=== PATIENT | male | born 1975 | race Caucasian/White ===

== ENCOUNTER 2021-09-05 10:57 | Inpatient (IN) | payer OTHER, BC ==
[~2021-09-05 10:57] MED LIST: Iopamidol-370 76% 500 ML 1 ML ONE
[2021-09-05] MEDS ORDERED: Ondansetron PF 4 MG/2 ML Vial ONE (11:02)
[2021-09-05] MEDS ORDERED: Boostrix 0.5 ML (Tdap) VIAL ONE (11:03)
[2021-09-05] MEDS ORDERED: Fentanyl 100 MCG/2 ML VIAL ONE ×2 (11:03→23:28)
[2021-09-05] MEDS ORDERED: ceFAZolin (BATCH) 2 GM/100 ML BAG ONE (11:13)
[2021-09-05 11:20] LABS: #Basophils 0.1 thou/uL (0.0-0.2); #Lymphocytes 4.1 thou/uL (1.20-3.40); #Monocytes 0.5 thou/uL (0.11-0.59); #Neutrophils 3.8 thou/uL (1.40-6.50); %Basophils 1.1 % (0.0-1.0); %Eosinophils 0.6 % (0.0-10.0); %Lymphocytes 47.5 % (21.0-51.0); %Monocytes 5.8 % (0.0-10.0); Hemoglobin 14.6 g/dL (14.0-18.0); Mean Corpuscular HGB CONC 33.9 g/dL (32.0-36.0); Mean Corpuscular Hemoglobin 32.9 pg (27.0-31.0); Mean Corpuscular Volume 97.2 fL (78.0-98.0); Mean Platelet Volume 7.4 fL (7.4-10.4); Platelet Count 150 thou/uL (130-400); RBC Distribution Width 13.6 % (11.5-14.5); Red Blood Cell (RBC) Count 4.42 mill/uL (4.70-6.10); White Blood Cell (WBC) Count 8.6 thou/uL (4.8-10.8)
[2021-09-05 11:37] LABS: ALT (SGPT) 50 U/L (8-55); AST (SGOT) 95 U/L (5-34); Albumin 3.6 g/dL (3.5-5.0); Alcohol 355 mg/dL (Less than 10); Alkaline Phosphatase 156 U/L (40-110); Anion Gap 16 mmol/L (10-20); BUN (Urea Nitrogen) 10 mg/dL (8.9-20.6); Bilirubin, Total 1.6 mg/dL (0.2-1.2); Calc. Creatinine Clearance 0 mL/min (70-130); Calcium 8.3 mg/dL (7.8-10.44); Carbon Dioxide 20 mmol/L (22-29); Chloride 106 mmol/L (98-107); Globulin 3.7 g/dL (2.4-3.5); Glucose 179 mg/dL (70-105); INR-International Normal Ratio 1.1; Potassium 3.6 mmol/L (3.5-5.1); Protein, Total 7.3 g/dL (6.0-8.3); Prothrombin Time 14.5 sec (12.0-14.7); Sodium 138 mmol/L (136-145)
[2021-09-05 11:38] LABS: PTT 38.3 sec (22.9-36.1)
[2021-09-05 12:09] LABS: Acetaminophen Less than 6.0 mcg/mL (10.0-30.0); Alcohol 352 mg/dL (Less than 10); Salicylate Less than 8.0 mg/dL (15.0-30.0)
[2021-09-05] MEDS ORDERED: Morphine 4 MG/ML VIAL ONE (12:27)
[2021-09-05] MEDS ORDERED: ceFAZolin 2 GM/Dextrose 50 ML 2 GM in Premix Bag 1 BAG IVPB SCH (14:15)
[2021-09-05 14:40] LABS: SARS-CoV-2 NAA Rapid Test Not Detected (NotDetected)
[2021-09-05 14:42] LABS: Lactic Acid 2.1 mmol/L (0.5-2.2)
[2021-09-05] MEDS ORDERED: Dextrose 50% Abboject 50 ML SYRINGE SLOW IVP PRN (14:48)
[2021-09-05] MEDS ORDERED: Morphine 4 MG/ML VIAL SLOW IVP PRN ×2 (14:48→19:13)
[2021-09-05] MEDS ORDERED: Ondansetron PF 4 MG/2 ML Vial IVP PRN (14:48)
[2021-09-05] MEDS ORDERED: hydrALAZINE 20 MG/ML VIAL SLOW IVP PRN (14:48)
[2021-09-05] MEDS ORDERED: Dextrose 5% in Water 1,000 ML IV PRN (14:48)
[2021-09-05] MEDS ORDERED: Ondansetron ODT 4 MG TAB PO PRN (14:48)
[2021-09-05] MEDS ORDERED: traMADol HCl 50 MG TAB PO PRN ×2 (14:55→22:14)
[2021-09-05 16:13] LABS: Magnesium 1.6 mg/dL (1.6-2.6); Phosphorus 2.8 mg/dL (2.3-4.7)
[2021-09-05] MEDS: Sodium Chloride 0.9% 1,000 ML IV SCH (16:55)
[2021-09-05 18:18] VITALS: BMI 39.0
[2021-09-05] MEDS ORDERED: Ibuprofen 200 MG TAB PO PRN (19:09)
[2021-09-05] MEDS ORDERED: traMADol HCl 50 MG TAB PO SCH (19:15)
[2021-09-05] MEDS ORDERED: Famotidine/PF 20 mg/2ml Vial SLOW IVP SCH (21:00)
[2021-09-05] MEDS: Oxazepam 10 MG CAP PO SCH (21:05)
[2021-09-05] MEDS ORDERED: Dexmedetomidine 200 MCG/2 ML VIAL ONE (23:28)
[2021-09-05] MEDS ORDERED: Neomycin-Polymyxin 1 ML AMP ONE (23:32)
[2021-09-06] MEDS ORDERED: Ondansetron PF 4 MG/2 ML Vial ONE (00:02)
[2021-09-06] MEDS ORDERED: Glycopyrrolate 0.2 MG/ML 5 ML SYRINGE ONE (00:02)
[2021-09-06] MEDS ORDERED: Lidocaine 1% PF 5 ML VIAL ONE (00:02)
[2021-09-06] MEDS ORDERED: Rocuronium Bromide 10 MG/ML (10ML VIAL) ONE (00:02)
[2021-09-06] MEDS ORDERED: PROPOFOL 200 MG/20 ML VIAL ONE (00:02)
[2021-09-06] MEDS ORDERED: Dexamethasone 20 MG/5 ML VIAL ONE (00:02)
[2021-09-06] MEDS: Sodium Chloride 0.9% 1,000 ML IV SCH (00:13)
[2021-09-06] MEDS ORDERED: Midazolam HCl 2 mg/2 ml Vial ONE (00:25)
[2021-09-06] MEDS ORDERED: Fentanyl 100 MCG/2 ML VIAL ONE (00:54)
[2021-09-06] MEDS ORDERED: Promethazine HCl 25 MG/ML VIAL IVPB PRN (01:01)
[2021-09-06] MEDS ORDERED: Promethazine HCl 25 MG/ML VIAL IM PRN (01:01)
[2021-09-06] MEDS ORDERED: Ondansetron HCl/PF 4 MG/2 ML Vial IVP PRN (01:01)
[2021-09-06] MEDS: Morphine 4 MG/ML VIAL SLOW IVP PRN ×3 (02:11→21:55)
[2021-09-06] MEDS: Oxazepam 10 MG CAP PO SCH ×3 (04:53→21:48)
[2021-09-06] MEDS: Clindamycin/D5W 900 MG in Premix Bag 1 BAG IVPB SCH ×2 (04:57→13:24)
[2021-09-06 05:54] LABS: Amphetamine Not Detected (NotDetected); Barbiturates Screen Not Detected (NotDetected); Benzodiazepine Screen Detected (NotDetected); Cocaine Metabolite Screen Not Detected (NotDetected); Methadone Not Detected (NotDetected); Methamphetamine Not Detected (NotDetected); Opiate Screen Detected (NotDetected); Oxycodone Screen Not Detected (NotDetected); Phencyclidine (PCP) Not Detected (NotDetected); THC/Cannabinoid Screen Not Detected (NotDetected); Tricyclic Screen Not Detected (NotDetected)
[2021-09-06 06:00] LABS: Anion Gap 12 mmol/L (10-20); BUN (Urea Nitrogen) 12 mg/dL (8.9-20.6); Calc. Creatinine Clearance 203 mL/min (70-130); Calcium 7.9 mg/dL (7.8-10.44); Carbon Dioxide 22 mmol/L (22-29); Chloride 107 mmol/L (98-107); Glucose 192 mg/dL (70-105); Magnesium 1.4 mg/dL (1.6-2.6); Potassium 4.1 mmol/L (3.5-5.1); Sodium 137 mmol/L (136-145)
[2021-09-06 06:16] LABS: #Lymphocytes 1.1 thou/uL (1.20-3.40); #Monocytes 0.1 thou/uL (0.11-0.59); #Neutrophils 3.8 thou/uL (1.40-6.50); %Basophils 0.4 % (0.0-1.0); %Eosinophils 0.2 % (0.0-10.0); %Monocytes 2.1 % (0.0-10.0); %Neutrophils 76.3 % (42.0-75.0); Hemoglobin 12.2 g/dL (14.0-18.0); Mean Corpuscular HGB CONC 35.1 g/dL (32.0-36.0); Mean Corpuscular Hemoglobin 34.5 pg (27.0-31.0); Mean Corpuscular Volume 98.4 fL (78.0-98.0); Mean Platelet Volume 7.5 fL (7.4-10.4); Platelet Count 94 thou/uL (130-400); Platelet Morphology Comment Appears Decreased; RBC Distribution Width 13.3 % (11.5-14.5); Red Blood Cell (RBC) Count 3.53 mill/uL (4.70-6.10)
[2021-09-06 06:24] LABS: Phosphorus 2.1 mg/dL (2.3-4.7)
[2021-09-06] MEDS ORDERED: Magnesium Sulfate 4 GM in Sodium Chloride 0.9% 250 ML 250 ML IVPB SCH (08:45)
[2021-09-06] MEDS ORDERED: Potassium Phosphate 30 MMOL in Sodium Chloride 0.9% 250 ML 250 ML IVPB SCH (08:45)
[2021-09-06] MEDS: Thiamine 100 MG TAB PO SCH (08:55)
[2021-09-06] MEDS: Folic Acid 1 MG TAB PO SCH (08:55)
[2021-09-06] MEDS: Multivitamin W/ Minerals 1 TAB PO SCH (08:56)
[2021-09-06] MEDS ORDERED: Magnesium Sulfate In Water 4 GM in Premix Bag 1 BAG IVPB SCH (09:00)
[2021-09-06] MEDS ORDERED: Acetaminophen 325 MG TAB PO PRN (10:03)
[2021-09-06] MEDS: traMADol HCl 50 MG TAB PO PRN ×2 (10:48→21:54)
[2021-09-06] MEDS: Cyclobenzaprine 10 MG TAB PO PRN ×2 (10:49→19:29)
[2021-09-06] MEDS: traMADol HCl 50 MG TAB PO SCH ×2 (12:03→17:28)
[2021-09-06] MEDS ORDERED: Acetaminophen/Codeine 30-300mg Tablet PO SCH (19:00)
[2021-09-06] MEDS: Acetaminophen/Codeine 30-300mg Tablet PO PRN (19:28)
[2021-09-07] MEDS: traMADol HCl 50 MG TAB PO SCH ×5 (00:35→23:52)
[2021-09-07] MEDS: Oxazepam 10 MG CAP PO SCH ×3 (04:07→21:45)
[2021-09-07] MEDS: Morphine 4 MG/ML VIAL SLOW IVP PRN (04:07)
[2021-09-07 06:19] LABS: #Monocytes 0.4 thou/uL (0.11-0.59); #Neutrophils 5.8 thou/uL (1.40-6.50); %Basophils 0.1 % (0.0-1.0); %Eosinophils 0.3 % (0.0-10.0); %Monocytes 5.7 % (0.0-10.0); Hemoglobin 12.1 g/dL (14.0-18.0); Mean Corpuscular HGB CONC 35.3 g/dL (32.0-36.0); Mean Corpuscular Hemoglobin 34.9 pg (27.0-31.0); Mean Platelet Volume 8.2 fL (7.4-10.4); Platelet Count 75 thou/uL (130-400); RBC Distribution Width 12.9 % (11.5-14.5); Red Blood Cell (RBC) Count 3.46 mill/uL (4.70-6.10); White Blood Cell (WBC) Count 7.3 thou/uL (4.8-10.8)
[2021-09-07 06:23] LABS: Anion Gap 8 mmol/L (10-20); BUN (Urea Nitrogen) 16 mg/dL (8.9-20.6); Calc. Creatinine Clearance 208 mL/min (70-130); Calcium 8.9 mg/dL (7.8-10.44); Carbon Dioxide 27 mmol/L (22-29); Chloride 103 mmol/L (98-107); Glucose 117 mg/dL (70-105); Magnesium 1.7 mg/dL (1.6-2.6); Phosphorus 2.7 mg/dL (2.3-4.7); Sodium 134 mmol/L (136-145)
[2021-09-07] MEDS ORDERED: Magnesium Sulfate In Water 4 GM in Premix Bag 1 BAG IVPB SCH (07:15)
[2021-09-07] MEDS ORDERED: MILK THISTLE 500 MG PO SCH ×2 (09:00)
[2021-09-07] MEDS ORDERED: Non-Formulary Item 1 EACH (Iron [Iron] 18 MG Tablet) PO SCH (09:00)
[2021-09-07] MEDS: Cyclobenzaprine 10 MG TAB PO PRN ×2 (09:37→17:58)
[2021-09-07] MEDS: Multivitamin W/ Minerals 1 TAB PO SCH (09:38)
[2021-09-07] MEDS: Spironolactone 100 MG TAB PO SCH (09:38)
[2021-09-07] MEDS: Ibuprofen 200 MG TAB PO SCH ×3 (09:38→23:51)
[2021-09-07] MEDS: Folic Acid 1 MG TAB PO SCH (09:39)
[2021-09-07] MEDS: Thiamine 100 MG TAB PO SCH (09:39)
[2021-09-07] MEDS: Gabapentin 300 MG CAP PO SCH ×3 (09:39→21:45)
[2021-09-07] MEDS: Ferrous Sulfate 325 MG TAB PO SCH (09:39)
[2021-09-08] MEDS: Oxazepam 10 MG CAP PO SCH ×3 (04:50→20:18)
[2021-09-08] MEDS: traMADol HCl 50 MG TAB PO SCH ×4 (05:04→23:10)
[2021-09-08 05:56] LABS: #Eosinphils 0.1 thou/uL (0.0-0.7); #Lymphocytes 2.1 thou/uL (1.20-3.40); #Monocytes 0.4 thou/uL (0.11-0.59); %Basophils 0.8 % (0.0-1.0); %Eosinophils 1.1 % (0.0-10.0); %Lymphocytes 37.6 % (21.0-51.0); %Monocytes 7.1 % (0.0-10.0); %Neutrophils 53.5 % (42.0-75.0); Hemoglobin 11.2 g/dL (14.0-18.0); Mean Corpuscular HGB CONC 34.5 g/dL (32.0-36.0); Mean Corpuscular Hemoglobin 34.5 pg (27.0-31.0); Mean Platelet Volume 8.3 fL (7.4-10.4); Platelet Count 77 thou/uL (130-400); RBC Distribution Width 13.2 % (11.5-14.5); Red Blood Cell (RBC) Count 3.26 mill/uL (4.70-6.10); White Blood Cell (WBC) Count 5.6 thou/uL (4.8-10.8)
[2021-09-08] MEDS ORDERED: Ibuprofen 200 MG TAB PO PRN (08:00)
[2021-09-08] MEDS: Ferrous Sulfate 325 MG TAB PO SCH (09:01)
[2021-09-08] MEDS: Famotidine 20 MG TAB PO SCH ×2 (09:01→20:18)
[2021-09-08] MEDS: Gabapentin 300 MG CAP PO SCH ×3 (09:01→20:18)
[2021-09-08] MEDS: Thiamine 100 MG TAB PO SCH (09:01)
[2021-09-08] MEDS: Cyclobenzaprine 10 MG TAB PO PRN ×2 (09:02→20:19)
[2021-09-08] MEDS: Folic Acid 1 MG TAB PO SCH (09:02)
[2021-09-08] MEDS: Spironolactone 100 MG TAB PO SCH (09:02)
[2021-09-08] MEDS: Enoxaparin Sodium 40 MG/0.4 ML SYRINGE SC SCH (09:02)
[2021-09-08] MEDS: Multivitamin W/ Minerals 1 TAB PO SCH (09:02)
[2021-09-09] MEDS: Oxazepam 10 MG CAP PO SCH ×3 (03:33→20:20)
[2021-09-09] MEDS: Acetaminophen/Codeine 30-300mg Tablet PO PRN ×2 (03:45→09:19)
[2021-09-09] MEDS: traMADol HCl 50 MG TAB PO SCH ×4 (05:37→23:38)
[2021-09-09] MEDS: Gabapentin 300 MG CAP PO SCH ×3 (09:03→20:20)
[2021-09-09] MEDS: Famotidine 20 MG TAB PO SCH ×2 (09:04→20:20)
[2021-09-09] MEDS: Folic Acid 1 MG TAB PO SCH (09:04)
[2021-09-09] MEDS: Multivitamin W/ Minerals 1 TAB PO SCH (09:04)
[2021-09-09] MEDS: Enoxaparin Sodium 40 MG/0.4 ML SYRINGE SC SCH (09:04)
[2021-09-09] MEDS: Spironolactone 100 MG TAB PO SCH (09:04)
[2021-09-09] MEDS: Thiamine 100 MG TAB PO SCH (09:04)
[2021-09-09] MEDS: Ferrous Sulfate 325 MG TAB PO SCH (09:10)
[2021-09-09] MEDS ORDERED: Ibuprofen 200 MG TAB PO SCH (11:00)
[2021-09-09] MEDS: Ibuprofen 200 MG TAB PO SCH ×2 (13:23→21:36)
[2021-09-09] MEDS: Cyclobenzaprine 10 MG TAB PO PRN (21:50)
[2021-09-10] MEDS: traMADol HCl 50 MG TAB PO SCH ×2 (04:42→12:21)
[2021-09-10] MEDS: Oxazepam 10 MG CAP PO SCH ×2 (04:42→12:25)
[2021-09-10] MEDS: Ibuprofen 200 MG TAB PO SCH ×2 (04:43→14:57)
[2021-09-10] MEDS: Ferrous Sulfate 325 MG TAB PO SCH (08:31)
[2021-09-10] MEDS: Folic Acid 1 MG TAB PO SCH (08:31)
[2021-09-10] MEDS: Famotidine 20 MG TAB PO SCH (08:31)
[2021-09-10] MEDS: Enoxaparin Sodium 40 MG/0.4 ML SYRINGE SC SCH (08:31)
[2021-09-10] MEDS: Thiamine 100 MG TAB PO SCH (08:32)
[2021-09-10] MEDS: Acetaminophen/Codeine 30-300mg Tablet PO PRN (08:32)
[2021-09-10] MEDS: Spironolactone 100 MG TAB PO SCH (08:32)
[2021-09-10] MEDS: Multivitamin W/ Minerals 1 TAB PO SCH (08:32)
[2021-09-10] MEDS: Gabapentin 300 MG CAP PO SCH ×2 (08:32→14:57)
[2021-09-10] MEDS ORDERED: Senokot 8.6 MG TAB PO SCH (09:00)
[2021-09-10 15:49] VITALS: BP 133/80; TEMP 97.7
== END 2021-09-10 17:44 | DRG 493 ==
LOC: ERS 10:57 → ERHOLD 13:45 → SJJU 16:51
PROVIDERS: ADMIT Surgery; ATTEND Surgery
PROC: 0QBG0ZZ Excision of Right Tibia, Open Approach (ICD-10-PCS; principal; 2021-09-05)
DX: S86.821A Laceration of other muscle(s) and tendon(s) at lower leg level, right leg, initial encounter (principal); S12.690A Other displaced fracture of seventh cervical vertebra, initial encounter for closed fracture; S22.41XA Multiple fractures of ribs, right side, initial encounter for closed fracture; S92.351B Displaced fracture of fifth metatarsal bone, right foot, initial encounter for open fracture; Z20.822 Contact with and (suspected) exposure to COVID-19; F41.9 Anxiety disorder, unspecified; F10.129 Alcohol abuse with intoxication, unspecified; F32.A Depression, unspecified; S01.01XA Laceration without foreign body of scalp, initial encounter; D69.59 Other secondary thrombocytopenia; V48.5XXA Car driver injured in noncollision transport accident in traffic accident, initial encounter; Z98.890 Other specified postprocedural states
CPT/HCPCS: 36415; 70450; 71045; 71260; 72125; 72170; 74177; 80048; 80053; 80306; 80307; 82140; 83605; 83735; 84100; 85025; 85610; 85730; 86850; 86900; 86901; 90471; 90715; 93005; 96374; 96375; G0390; J0690; J1100; J1650; J2250; J2270; J2405; J2704; J3010; J3475; J3490; J7050; Q0162; Q9967; S0028; U0002

== ENCOUNTER 2023-08-22 01:28 | Emergency (ER) | payer OTHER, SELFPAY ==
[2023-08-22 02:23] LABS: #Eosinphils 0.1 thou/uL (0.0-0.7); #Monocytes 0.6 thou/uL (0.11-0.59); #Neutrophils 2.9 thou/uL (1.40-6.50); %Basophils 0.4 % (0.0-1.0); %Eosinophils 2.2 % (0.0-10.0); %Lymphocytes 32.7 % (21.0-51.0); %Monocytes 10.2 % (0.0-10.0); %Neutrophils 54.3 % (42.0-75.0); Hematocrit 27.1 % (42.0-52.0); Hemoglobin 8.8 g/dL (14.0-18.0); Mean Corpuscular HGB CONC 32.5 g/dL (32.0-36.0); Mean Corpuscular Hemoglobin 26.9 pg (27.0-31.0); Mean Corpuscular Volume 82.9 fl (78.0-98.0); Mean Platelet Volume 10.4 fL (7.4-10.4); Platelet Count 172 10x3/uL (130-400); RBC Distribution Width 16.6 % (11.5-14.5); Red Blood Cell (RBC) Count 3.27 mill/uL (4.70-6.10); White Blood Cell (WBC) Count 5.4 10x3/uL (4.8-10.8)
[2023-08-22 02:36] LABS: INR-International Normal Ratio 1.2; PTT 45.1 sec (22.9-36.1); Prothrombin Time 15.7 sec (12.0-14.7)
[2023-08-22 02:47] LABS: ALT (SGPT) 28 U/L (8-55); AST (SGOT) 70 U/L (5-34); Alkaline Phosphatase 158 U/L (40-110); Anion Gap 15 mmol/L (10-20); BUN (Urea Nitrogen) 13 mg/dL (8.9-20.6); Bilirubin, Total 1.2 mg/dL (0.2-1.2); Calc. Creatinine Clearance 0 mL/min (70-130); Calcium 8.2 mg/dL (7.8-10.44); Carbon Dioxide 18 mmol/L (22-29); Chloride 110 mmol/L (98-107); Estimated GFR 95; Glucose 102 mg/dL (70-105); Potassium 3.1 mmol/L (3.5-5.1); Sodium 140 mmol/L (136-145)
[2023-08-22] MEDS ORDERED: Lidocaine 1% PF 5 ML VIAL ONE (04:29)
[2023-08-22] MEDS ORDERED: Lidocaine 1% w/Epinephrine 1:100K 20 ML VIAL ONE (04:29)
== END 2023-08-22 05:24 ==
LOC: ERS 01:28 → EEVIPCON 01:28 → ERS 05:24
DX: S01.01XA Laceration without foreign body of scalp, initial encounter (principal); S01.81XA Laceration without foreign body of other part of head, initial encounter; F17.290 Nicotine dependence, other tobacco product, uncomplicated; W13.3XXA Fall through floor, initial encounter
CPT/HCPCS: 12002; 36415; 70450; 80053; 85025; 85610; 85730; 93005

== ENCOUNTER 2023-12-07 18:16 | Emergency (ER) | payer BC, OTHER ==
[2023-12-07 22:11] LABS: Hemoglobin 12.4 g/dL (14.0-18.0); Mean Corpuscular HGB CONC 34.4 g/dL (32.0-36.0); Mean Corpuscular Hemoglobin 29.3 pg (27.0-31.0); Mean Corpuscular Volume 85.1 fL (78.0-98.0); Mean Platelet Volume 11.2 fL (7.4-10.4); Platelet Count 102 10x3/uL (130-400); RBC Distribution Width 17.3 % (11.5-14.5); Red Blood Cell (RBC) Count 4.23 mill/uL (4.70-6.10)
[2023-12-07 22:38] LABS: ALT (SGPT) 21 U/L (8-55); AST (SGOT) 47 U/L (5-34); Albumin 2.9 g/dL (3.5-5.0); Alkaline Phosphatase 144 U/L (40-110); Anion Gap 12 mmol/L (10-20); BUN (Urea Nitrogen) 12 mg/dL (8.9-20.6); Bilirubin, Total 1.5 mg/dL (0.2-1.2); Calc. Creatinine Clearance 0 mL/min (70-130); Calcium 8.8 mg/dL (7.8-10.44); Carbon Dioxide 17 mmol/L (22-29); Chloride 110 mmol/L (98-107); Estimated GFR 110; Globulin 4.1 g/dL (2.4-3.5); Glucose 96 mg/dL (70-105); Potassium 3.2 mmol/L (3.5-5.1); Sodium 136 mmol/L (136-145)
[2023-12-07 22:40] LABS: Band 36 % (5-11); Burr Cells SLIGHT = 2-5 cells HPF (0-1); Lymphocytes 12 % (21-51); Monocytes 1 % (0-10); Neutrophil 50 % (42-75); Platelet Adequacy Comment Platelets Decreased
[2023-12-07 22:43] LABS: Troponin I Less than 0.010 ng/mL (< 0.028)
== END 2023-12-08 00:30 | disposition home or self-care (01) ==
LOC: ERS 18:16
DX: Z53.21 Procedure and treatment not carried out due to patient leaving prior to being seen by health care provider (principal)
CPT/HCPCS: 36415; 80053; 83605; 84484; 85025